=== PATIENT | female | born 1965 | race Two or more races ===

== ENCOUNTER → 2024-05-03 | Outpatient (CLI) | payer BC, MEDICAID, SELFPAY ==
--- NOTE | 2024-05-03 15:30 | XR_ITS ---
Examination: CT maxillofacial, without intravenous contrast. 2-D sagittal reconstructions. 3-D reconstructions. Date and time of exam:May 03, 2024 1320 hours INDICATIONS: Chronic sinus pressure and pain infection dizziness several days CTDI: vol (mGy):7.59 DLP: (mGycm):85.9 Technique: Multiple axial images of maxillofacial region, 3.0 mm slice thickness. 2-D sagittal and coronal reconstructions. 3-D reconstructions. Low dose protocols were performed. One or more of the following dose reduction techniques were used; automated exposure control, adjustment of the mA and/or KV according to patient size, use of iterative reconstruction technique. Findings: Underdeveloped frontal air cells Moderate mucosal thickening ethmoid air cells but no occlusion ostiomeatal complexes Trace mucosal thickening 1 to 2 mm in the maxillary antra Sphenoid air cells are clear Moderate hypertrophy inferior nasal turbinates Symmetrical mastoid aeration Negative for otitis media No visualized cerebral mass IMPRESSION: Moderate mucosal thickening ethmoid air cells
== END | disposition home or self-care (01) ==
PROVIDERS: PCP Family Medicine; Referring Provider Family Medicine; Visit Provider Family Medicine
DX: J32.8 Other chronic sinusitis (principal)
CPT/HCPCS: 70486

== ENCOUNTER → 2025-03-17 | Outpatient (CLI) | payer BC, MEDICAID, SELFPAY ==
--- NOTE | 2025-03-17 09:15 | XR_ITS ---
Examination: Screening digital mammography, bilateral Computer aided detection 3-D breast Tomosynthesis, bilateral Date and time of exam: March 17, 2025, 0926 hours Compared to mammograms dating to December 06, 2019 Indication: Screening Technique: Nonmagnified MLO, CC views of the breasts to been obtained, reconstructed from 3-D Tomosynthesis images. R2 computer aided detection program utilized for evaluation of suspicious masses and/or abnormal calcifications. 3-D Tomosynthesis images obtained. Findings: Scattered areas of fibroglandular density. Focal asymmetry with breast biopsy marker stable upper outer left breast 4 mm focal asymmetry left breast cc view nipple level 8 cm from the nipple Impression: BI-RADS Category 0: Incomplete: Need additional imaging evaluation Recommend follow-up Spot tomographic cc view for millimeter focal asymmetry described above, spot compression MLO view, tomographic upper left breast as well as left breast sonography to complete the work-up
== END | disposition home or self-care (01) ==
PROVIDERS: PCP Family Medicine; Referring Provider Family Medicine; Visit Provider Family Medicine
DX: Z12.31 Encounter for screening mammogram for malignant neoplasm of breast (principal); R92.8 Other abnormal and inconclusive findings on diagnostic imaging of breast; N64.89 Other specified disorders of breast
CPT/HCPCS: 77063; 77067

== ENCOUNTER → 2025-03-18 | Outpatient (CLI) | payer BC, MEDICAID, SELFPAY ==
--- NOTE | 2025-03-18 09:21 | XR_ITS ---
Examination: Diagnostic digital mammography, unilateral, left Computer aided detection 3-D breast Tomosynthesis, unilateral Date and time of exam: March 10, 9:43 p.m. INDICATIONS: Mammogram March 17, 2025 focal asymmetry 4 mm left breast cc view Technique: Nonmagnified MLO, CC views of the left breast have been obtained, reconstructed from 3-D Tomosynthesis images. R2 computer aided detection program utilized for evaluation of suspicious masses and/or abnormal calcifications. 3-D Tomosynthesis images obtained. Findings: Scattered areas of fibroglandular density Breast biopsy marker upper outer left breast No suspicious mass confirmed Impression: BI-RADS category 2: Benign findings Return to yearly follow-up mammography
--- NOTE | 2025-03-18 09:29 | XR_ITS ---
Examination: Breast ultrasound, unilateral, left complete Date and time of exam: March 18, 2025, 10:15 a.m. INDICATIONS: Mammogram March 17, 2025 4 mm focal asymmetry left breast cc view 8 cm from the nipple Technique: Real-time hardin scale ultrasonographic imaging performed left breast including all 4 quadrants as well as nipple retroareolar and axillary region. Findings: 2:00 cyst lobular margins No solid nodules IMPRESSION: BI-RADS Category 2: Benign findings
== END | disposition home or self-care (01) ==
LOC: CDIM 09:15
PROVIDERS: PCP Family Medicine; Referring Provider Family Medicine; Visit Provider Family Medicine
DX: R92.322 Mammographic fibroglandular density, left breast (principal)
CPT/HCPCS: 76641; 77061; 77065; G0279

== ENCOUNTER → 2025-05-09 | Outpatient (CLI) | payer BC, MEDICAID, SELFPAY ==
--- NOTE | 2025-05-09 15:34 | XR_ITS ---
EXAMINATION: Thoracic spine 3 views TECHNIQUE: AP and lateral,: Lateral upper dorsal spine Date and time: May 09, 2025, 1554 hours INDICATIONS: Upper back pain 3 months. FINDINGS: Prominent osteopenia. Thoracic levoscoliosis 12 degrees Mild to moderate diffuse thoracic disc narrowing No acute thoracic fracture Intact pedicles IMPRESSION: Thoracic levoscoliosis 12 degrees Mild to moderate diffuse thoracic degenerative disc disease
== END | disposition home or self-care (01) ==
LOC: CDIM 15:29
PROVIDERS: Referring Provider Family Medicine; Visit Provider Family Medicine
DX: M41.84 Other forms of scoliosis, thoracic region (principal); M51.34 Other intervertebral disc degeneration, thoracic region
CPT/HCPCS: 72072